=== PATIENT | female | born 1950 | race Caucasian/White ===

== ENCOUNTER 2019-07-31 05:46 | Day surgery (SDC) | payer MEDICARE ==
[2019-07-28 12:22] LABS: BASOPHILS % (AUTO) 0.5 % (0.0-5.0); EOSINOPHILS % (AUTO) 1.5 % (0.0-8.0); HEMATOCRIT 39.1 % (36-48); LYMPHOCYTES % (AUTO) 28.2 % (21.0-51.0); MEAN CORPUSCULAR HEMOGLOBIN 28.3 pg (27.0-33.0); MEAN CORPUSCULAR VOLUME 88.5 fL (79-99); MONOCYTES % (AUTO) 8.2 % (3.0-13.0); NEUTROPHILS % (AUTO) 61.2 % (40.0-77.0); PLATELET COUNT (AUTO) 235 K/uL (130-400); RED BLOOD CELL COUNT(AUTO) 4.42 MIL/uL (4.00-5.50); RED CELL DISTRIBUTION WIDTH 14.5 % (11.0-15.5); WHITE BLOOD COUNT (AUTO) 7.8 K/uL (4.8-10.8)
[2019-07-28 12:27] VITALS: BP 140/72
[2019-07-28 12:30] LABS: CREATININE 0.9 mg/dL (0.5-1.5); POTASSIUM 4.7 mmol/L (3.5-5.1)
[2019-07-28 12:31] LABS: PROTHROMBIN TIME 10.5 SEC (9.6-11.6)
[2019-07-28 12:47] LABS: APPEARANCE,URINE Clear (CLEAR); BILIRUBIN,URINE Negative (NEGATIVE); COLOR,URINE Yellow (YELLOW); GLUCOSE, URINE (UA) Negative (NEGATIVE); KETONES,URINE Negative (NEGATIVE); LEUKOCYTE ESTERASE ,URINE Moderate (NEGATIVE); NITRATE,URINE Negative (NEGATIVE); OCCULT BLOOD,URINE Trace (NEGATIVE); PH,URINE 5.5 (5.0-8.0); PROTEIN,URINE Negative (NEGATIVE); UROBILINOGEN,URINE 0.2 mg/dL (0.2-1.0)
[2019-07-28 13:35] LABS: BACTERIA,URINE Rare /HPF (None Seen); RBC,URINE 0-1 /HPF (0-1); SQUAMOUS EPITHELIAL CELL,UR Few /HPF (0-2)
[~2019-07-31] VITALS: Ht 152.4 cm; Wt 77.1 kg
[2019-07-31] VITALS (9 sets, daily range): BP systolic 100–135; BP diastolic 55–88
[~2019-07-31 05:46] MED LIST: AMLO5TAB9 PO; CITA-107 PO; CLOP75TA32 PO; METO-391 PO; OXCA600T18 PO; ROSU20TA31 PO; TRAZ-187 PO
--- NOTE | 2019-07-31 06:00 | NUR ---
PRE-PROCEDURE RECEIVED FROM HOME TO DAY 14 FOR SCHEDULED RT & LHC ACCOMPANIED BY . AWAKE IN NO ACUTE DISTRESS. DENIES PAIN. CONNECTED TO CONTINUOUS CARDIOPULMONARY MONITORING. SIDE RAILS UP X2, BED IN LOWEST POSITION, AND CALL LIGHT W/IN REACH.
--- NOTE | 2019-07-31 06:20 | NUR ---
UA RESULTS CARLOS CARRIZALES NOTIFIED OF WBC 6-10 AND LEUK ESTRACE ON UA. NO NEW ORDERS RECEIVED.
[2019-07-31] MEDS ORDERED: SODIUM BICARB 50MEQ 50ML VIAL ONE (07:10)
[2019-07-31] MEDS ORDERED: NITROGLYCERIN 2 MG/VIAL VIAL IV ONE (07:10)
[2019-07-31] MEDS ORDERED: IOHEXOL-350 50ML VIAL IV ONE (07:10)
[2019-07-31] MEDS ORDERED: IOHEXOL 350 MG/ML 100ML INFUS..BTL IV ONE (07:10)
[2019-07-31] MEDS ORDERED: MEPERIDINE-PF 25 MG/ML SYG ONE ×2 (07:11→07:49)
[2019-07-31] MEDS ORDERED: SODIUM CHLORIDE 0.9% 1000ML 1,000 ML IV ONE (07:11)
[2019-07-31] MEDS ORDERED: MIDAZOLAM HCL 1 MG/ML 2ML VIAL ONE ×2 (07:11→07:49)
[2019-07-31] MEDS ORDERED: HEPARIN SODIUM 1000UNIT/ML 10ML VIAL ONE (07:11)
[2019-07-31] MEDS ORDERED: LIDOCAINE HCL 2% 20ML ONE (07:11)
--- NOTE | 2019-07-31 07:13 | NUR ---
PROCEDURE TRANSFERRED TO AIRCRAFT PART ASSEMBLER VIA BED BY BIANKA SAUCEDO RN.
[2019-07-31] MEDS ORDERED: ONDANSETRON HCL 4 MG/2 ML VIAL ONE (07:27)
[2019-07-31] MEDS ORDERED: ONDANSETRON HCL 4 MG/2 ML VIAL IVP PRN (08:45)
--- NOTE | 2019-07-31 09:10 | NUR ---
POST-PROCEDURE RECEIVED FROM FUNERAL DIRECTOR AND EMBALMER VIA BED S/P RT AND LHC. AWAKE IN NO ACUTE DISTRESS. DENIES PAIN. RIGHT FEMORAL CATH SITE W/O SIGNS OF BLEEDING; PERCLOSE DRESSING CLEAN, DRY, AND INTACT;SITE SOFT, NON-TENDER. EDUCATED PT TO KEEP RIGHT LEG STRAIGHT AND HEAD FLAT. PT VERBALIZED UNDERSTANDING. CONNECTED TO CONTINUOUS CARDIOPULMONARY MONITORING. SIDE RAILS UP X2, BED IN LOWEST POSITION, AND CALL LIGHT W/IN REACH.
--- NOTE | 2019-07-31 09:45 | NUR ---
CONSULT PARUL CARRANZA WITH DR. SURESH IN TO SEE PATIENT. DISCUSSED PLAN OF CARE WITH PT INCLUDING PLAN TO MAKE F/U APPT TO SCHEDULED SURGERY. PT VERBALIZED UNDERSTANDING.
--- NOTE | 2019-07-31 10:10 | NUR ---
DIET ATE 50% OF BREAKFAST.
--- NOTE | 2019-07-31 12:05 | NUR ---
DIET ATE 100% OF LUNCH.
--- NOTE | 2019-07-31 13:00 | NUR ---
ACTIVITY UP TO CHAIR WITH MINIMAL ASSIST X1. CATH SITE W/O SIGNS OF BLEEDING; PERCLOSE DRESSING CLEAN, DRY, AND INTACT; SITE SOFT, NON-TENDER.
--- NOTE | 2019-07-31 13:05 | NUR ---
DISCHARGE DAY PT DISCHARGE INSTRUCTION SHEET, MED REC, AND PT SUMMARY REVIEWED WITH PT AND . EDUCATED IF PUNCTURE SITE STARTS BLEEDING APPLY DIRECT PRESSURE OVER THE AREA OR FOR ANY SIGNS OF BLEEDING AND CALL 911, NO HEAVY LIFTING MORE THAN 5LBS FOR 5 DAYS, NO DRIVING FOR 24 HOURS, AND FOLLOW UP APPTS. BOTH VERBALIZED UNDERSTANDING.
--- NOTE | 2019-07-31 13:10 | NUR ---
DISCHARGE DISCHARGE VIA W/C AWAKE IN ACUTE DISTRESS.
== END 2019-07-31 13:10 ==
LOC: DAH 05:46
PROVIDERS: ATTEND Internal Medicine Cardiovascular Disease
DX: I35.0 Nonrheumatic aortic (valve) stenosis (principal); I34.0 Nonrheumatic mitral (valve) insufficiency; I50.30 Unspecified diastolic (congestive) heart failure; I11.0 Hypertensive heart disease with heart failure; I27.20 Pulmonary hypertension, unspecified; E78.5 Hyperlipidemia, unspecified; Z90.49 Acquired absence of other specified parts of digestive tract; G40.909 Epilepsy, unspecified, not intractable, without status epilepticus; Z90.710 Acquired absence of both cervix and uterus; Z98.890 Other specified postprocedural states; Z79.02 Long term (current) use of antithrombotics/antiplatelets; Z86.73 Personal history of transient ischemic attack (TIA), and cerebral infarction without residual deficits; Z79.899 Other long term (current) drug therapy; Z88.8 Allergy status to other drugs, medicaments and biological substances; Z72.89 Other problems related to lifestyle; Z82.49 Family history of ischemic heart disease and other diseases of the circulatory system
CPT/HCPCS: 36415; 71045; 80048; 81001; 85025; 85610; 85730; 93005; 93460; 93880; A4215; A4216; A4221; A4222; A4223 ×3; A4606; A4663; C1760; C1769 ×2; C1893; C1894; J1644; J2175 ×2; J2250 ×2; J2405; J3490 ×3; J7030; Q9965; Q9967 ×2; 99156; 99157

== ENCOUNTER 2019-08-19 09:00 | Inpatient (IN) | payer MEDICARE ==
[~2019-08-19] VITALS: Ht 154.9 cm; Wt 76.6 kg
[~2019-08-19 09:00] MED LIST changes: -CLOP75TA32 PO
[2019-08-19 11:11] LABS: BASOPHILS % (AUTO) 0.6 % (0.0-5.0); EOSINOPHILS % (AUTO) 1.6 % (0.0-8.0); HEMATOCRIT 37.2 % (36-48); LYMPHOCYTES % (AUTO) 24.1 % (21.0-51.0); MEAN CORPUSCULAR HEMOGLOBIN 28.4 pg (27.0-33.0); MEAN CORPUSCULAR HGB CONC 31.7 g/dL (32.0-36.0); MEAN CORPUSCULAR VOLUME 89.6 fL (79-99); MONOCYTES % (AUTO) 7.3 % (3.0-13.0); NEUTROPHILS % (AUTO) 66.2 % (40.0-77.0); PLATELET COUNT (AUTO) 221 K/uL (130-400); RED BLOOD CELL COUNT(AUTO) 4.15 MIL/uL (4.00-5.50); RED CELL DISTRIBUTION WIDTH 14.6 % (11.0-15.5); WHITE BLOOD COUNT (AUTO) 8.1 K/uL (4.8-10.8)
[2019-08-19 11:15] VITALS: BP 140/83
[2019-08-19 11:22] LABS: INR 0.95 (0.85-1.15); PROTHROMBIN TIME 10.3 SEC (9.6-11.6)
[2019-08-19 11:23] LABS: ALBUMIN 3.8 g/dL (3.5-5.0); BILIRUBIN,TOTAL 0.3 mg/dL (0.2-1.0); CREATININE 0.8 mg/dL (0.5-1.5); POTASSIUM 4.7 mmol/L (3.5-5.1); TOTAL PROTEIN, SERUM 8.2 g/dL (6.0-8.3)
[2019-08-19] MEDS ORDERED: CLOP75TA14 PO (11:40)
[2019-08-19 11:58] LABS: HEMOGLOBIN A1C 5.6 % (4.0-6.0)
[2019-08-24] VITALS (23 sets, daily range): BP systolic 101–156; BP diastolic 48–84
[2019-08-24] MEDS ORDERED: AMINOCAPROIC ACID 15,000 MG in SODIUM CHLORIDE 0.9% 500ML 420 ML IV PRN (08:45)
[2019-08-24] MEDS ORDERED: EPINEPHRINE 10 MG in SODIUM CHLORIDE 0.9% 240 ML IV PRN (08:45)
[2019-08-24] MEDS ORDERED: NOREPINEPHRINE BITARTRATE 8 MG in DEXTROSE 5%-WATER 250 ML IV PRN (08:45)
[2019-08-24] MEDS ORDERED: EPINEPHRINE 1 MG/ML AMPULE ONE (10:07)
[2019-08-24] MEDS ORDERED: AMINOCAPROIC ACID 250 MG/ML 20 ML VIAL IV ONE ×2 (10:07→13:14)
[2019-08-24] MEDS ORDERED: NOREPINEPHRINE BITARTRATE 1 MG/1 ML ML IV ONE (10:07)
[2019-08-24] MEDS ORDERED: PROPOFOL 10 MG/ML 20ML VIAL IV ONE (10:07)
[2019-08-24] MEDS ORDERED: PROTAMINE SULFATE 10 MG/ML 25ML VIAL IV ONE (10:07)
[2019-08-24] MEDS ORDERED: LIDOCAINE PF 2% 5ML ABBOJECT ONE (10:07)
[2019-08-24] MEDS ORDERED: ROCURONIUM 10MG/1ML SYR 10 MG/ML ML ONE (10:07)
[2019-08-24] MEDS ORDERED: ESMOLOL HCL 10 MG/ML 10 ML VIAL ONE (10:07)
[2019-08-24] MEDS ORDERED: MIDAZOLAM HCL 1 MG/ML 2ML VIAL ONE (10:07)
[2019-08-24] MEDS ORDERED: HEPARIN SODIUM 1000UNIT/ML 10ML VIAL ONE (10:07)
[2019-08-24] MEDS ORDERED: ETOMIDATE 2 MG/ML 10 ML VIAL ONE (10:07)
[2019-08-24] MEDS ORDERED: AMIODARONE HCL 50 MG/ML 3 ML VIAL ONE (10:08)
[2019-08-24] MEDS ORDERED: GLYCOPYRROLATE 1 MG/5 ML SYRINGE ONE (10:08)
[2019-08-24] MEDS ORDERED: FENTANYL CITRATE PF 50 MCG/1 ML 5ML AMP IV ONE ×2 (10:11)
[2019-08-24] MEDS: CEFUROXIME SODIUM 1.5 GM VIAL IVP SCH ×2 (10:30→11:35)
[2019-08-24] MEDS ORDERED: SODIUM CHLORIDE 0.9% 1000ML 1,000 ML IV ONE (10:39)
--- NOTE | 2019-08-24 10:51 | NUR ---
POTENTIAL FOR INFECTION: SHAVED BILATERAL GROIN AREA AND BILATERAL ABOVE KNEE PER HOWARD RITTER, FOLLOWED BY WIPING WITH NOEL: 2% CHLORHEXIDINE GLUCONATE CLOTH PATIENTS PRE-OP SKIN PREP.
--- NOTE | 2019-08-24 11:00 | NUR ---
CONSULT: DR. CLARKE NOTIFIED OF PATIENT NOT TAKING METOPROLOL IN AM AND HEART RATE AT 58 APICAL. OK TO HOLD METOPROLOL AND DR. CLARKE WILL TAKE CARE DURING SURGERY.
[2019-08-24] MEDS ORDERED: DELNIDO FORMULA 1 BAG IV ONE (11:07)
[2019-08-24] MEDS ORDERED: CEFAZOLIN SODIUM 1 GM VIAL ONE (11:21)
[2019-08-24] MEDS ORDERED: ROPIVACAINE 0.5% 5MG/ML 30ML IJ ONE (11:22)
[2019-08-24] MEDS ORDERED: ROCURONIUM BROMIDE 10MG/1ML 5ML VL ONE (11:55)
[2019-08-24] MEDS ORDERED: SODIUM CHLORIDE 0.9% 500ML 500 ML IV SCH (12:05)
[2019-08-24 12:11] LABS: ABG HCO3 22.8 mmol/L (21.0-28.0); ABG PCO2 35 mmHg (32-45)
[2019-08-24] MEDS ORDERED: NOREPINEPHRINE 4MG/NS 250ML 250 ML IV PRN (12:15)
[2019-08-24] MEDS ORDERED: TRAMADOL HCL 50 MG TABLET PO PRN (12:15)
[2019-08-24] MEDS ORDERED: DEXTROSE 50%-WATER 50 ML DISP.SYRIN IV PRN (12:15)
[2019-08-24] MEDS ORDERED: EPINEPHRINE 10 MG in DEXTROSE 5%-WATER 250 ML IV PRN (12:15)
[2019-08-24] MEDS ORDERED: SODIUM CHLORIDE 0.9% 250 ML IV PRN (12:15)
[2019-08-24] MEDS ORDERED: POTASSIUM PHOS 15 mMOL+NS250ML 250 ML IV PRN (12:15)
[2019-08-24] MEDS ORDERED: Q-PUMP 1 EACH IRRIG SCH (12:15)
[2019-08-24] MEDS ORDERED: NITROGLYCERIN 50 MG/D5% WATER 250 BOT IV SCH (12:15)
[2019-08-24] MEDS ORDERED: ACETAMINOPHEN 325 MG TAB PO PRN ×2 (12:15)
[2019-08-24] MEDS ORDERED: PROPOFOL 1000 MG/100 ML 100 ML IV PRN (12:15)
[2019-08-24] MEDS ORDERED: SODIUM CHLORIDE 0.9% 1000ML 1,000 ML IV SCH (12:15)
[2019-08-24] MEDS ORDERED: GLUCAGON 1MG KIT 1 MG ML IM PRN (12:15)
[2019-08-24] MEDS ORDERED: ACETAMINOPHEN 650 MG SUPPOSITORY RC PRN (12:15)
[2019-08-24] MEDS ORDERED: MORPHINE SULFATE 4 MG/1ML SYG IV PRN (12:15)
[2019-08-24] MEDS ORDERED: SODIUM CHLORIDE 0.9% 10 ML VIAL IVP PRN (12:15)
[2019-08-24] MEDS ORDERED: ONDANSETRON HCL 4 MG/2 ML VIAL IV PRN (12:15)
[2019-08-24] MEDS ORDERED: AMINOCAPROIC ACID 15,000 MG in SODIUM CHLORIDE 0.9% 250 ML IV SCH (12:15)
[2019-08-24] MEDS ORDERED: MORPHINE SULFATE 2 MG/ML 1ML SYG IV PRN (12:15)
[2019-08-24] MEDS ORDERED: ALBUMIN (HUMAN) 5% 250 ML IV PRN (12:15)
[2019-08-24 12:43] LABS: ABG BASE EXCESS -1.6 mmol/L (-2.0-3.0); ABG HCO3 21.6 mmol/L (21.0-28.0); ABG OXYGEN SATURATION 98.7 % (95.0-99.0); ABG PCO2 30 mmHg (32-45)
[2019-08-24] MEDS ORDERED: PROTAMINE SULFATE 10 MG/ML 5 ML VIAL ONE (12:54)
[2019-08-24] MEDS ORDERED: ROPIVACAINE 0.2% 2MG/ML 100ML VIAL IJ ONE (13:00)
[2019-08-24] MEDS ORDERED: MANNITOL 25% 50ML VIAL IV ONE (13:14)
[2019-08-24] MEDS ORDERED: ALBUMIN (HUMAN) 25% 50 ML IV ONE (13:14)
[2019-08-24] MEDS ORDERED: CALCIUM CHLORIDE 100 MG/ML 10 ML SYG IVP ONE (13:14)
[2019-08-24] MEDS ORDERED: SODIUM BICARB 8.4% 50ML SYRINGE IVP ONE (13:14)
[2019-08-24] MEDS ORDERED: MAGNESIUM SULFATE 1 GM/2 ML VIAL IM ONE (13:14)
[2019-08-24] MEDS ORDERED: HEPARIN SODIUM 1000UNIT/ML 10ML VIAL IV ONE (13:14)
[2019-08-24] MEDS ORDERED: PHENYLEPHRINE HCL 10 MG/ML 1ML VIAL IV ONE (13:14)
[2019-08-24 13:32] LABS: ABG BASE EXCESS -1.3 mmol/L (-2.0-3.0); ABG HCO3 23.7 mmol/L (21.0-28.0); ABG OXYGEN SATURATION 98.8 % (95.0-99.0); ABG PCO2 41 mmHg (32-45)
[2019-08-24 14:13] LABS: ABG BASE EXCESS -4.4 mmol/L (-2.0-3.0); ABG HCO3 21.3 mmol/L (21.0-28.0); ABG OXYGEN SATURATION 96.9 % (95.0-99.0); ABG PCO2 42 mmHg (32-45)
[2019-08-24 14:15] LABS: HEMATOCRIT 31.9 % (36-48); MEAN CORPUSCULAR HEMOGLOBIN 28.8 pg (27.0-33.0); MEAN CORPUSCULAR HGB CONC 32.3 g/dL (32.0-36.0); MEAN CORPUSCULAR VOLUME 89.1 fL (79-99); PLATELET COUNT (AUTO) 184 K/uL (130-400); RED BLOOD CELL COUNT(AUTO) 3.58 MIL/uL (4.00-5.50); RED CELL DISTRIBUTION WIDTH 14.6 % (11.0-15.5); WHITE BLOOD COUNT (AUTO) 25.7 K/uL (4.8-10.8)
[2019-08-24] MEDS: INSULIN REGULAR, HUMAN 3ML 100 UNIT in SODIUM CHLORIDE 0.9% 99 ML IV SCH ×2 (14:22)
[2019-08-24 14:34] LABS: INR 1.08 (0.85-1.15); PARTIAL THROMBOPLASTIN TIME 22.7 SEC (26.3-35.5); PROTHROMBIN TIME 11.6 SEC (9.6-11.6)
[2019-08-24] MEDS: SODIUM BICARB 50MEQ 50ML VIAL IV PRN ×2 (14:34→19:07)
[2019-08-24 14:36] LABS: CREATININE 0.8 mg/dL (0.5-1.5); PHOSPHORUS 3.1 mg/dL (2.5-4.9); POTASSIUM 3.1 mmol/L (3.5-5.1)
[2019-08-24] MEDS: POTASSIUM CHLORIDE 20MEQ/100ML 100 ML IV PRN ×5 (14:36→21:54)
[2019-08-24] MEDS: CALCIUM GLUCONATE 1 GM in SODIUM CHLORIDE 0.9% 50 ML IV PRN ×3 (15:15→16:59)
[2019-08-24 15:49] LABS: ABG BASE EXCESS 0.4 mmol/L (-2.0-3.0); ABG OXYGEN SATURATION 96.9 % (95.0-99.0); ABG PCO2 40 mmHg (32-45)
[2019-08-24 16:46] LABS: ABG BASE EXCESS -0.8 mmol/L (-2.0-3.0); ABG HCO3 24.1 mmol/L (21.0-28.0); ABG OXYGEN SATURATION 97.8 % (95.0-99.0); ABG PCO2 41 mmHg (32-45)
[2019-08-24] MEDS: TRAMADOL HCL 50 MG TABLET PO PRN ×2 (17:32→23:58)
[2019-08-24] MEDS: CEFAZOLIN SODIUM 1 GM VIAL IV SCH (17:49)
[2019-08-24] MEDS: ONDANSETRON HCL 4 MG/2 ML VIAL IV PRN ×2 (18:36→22:25)
[2019-08-24 18:38] LABS: ABG BASE EXCESS -1.3 mmol/L (-2.0-3.0); ABG PCO2 48 mmHg (32-45)
--- NOTE | 2019-08-24 19:45 | NUR ---
ASSESSMENT AWAKE. RESTING IN BED. USES PILLOW TO SPLINT CHEST WITH DBC. IS USE ENCOURAGED PER ORDER. ASSESSMENT COMPLETED SEE FLOW SHEET. Addendum: 08/24/19 at 1946 by JACQUELINE WEIR RN RN Amended: Links added.
[2019-08-24] MEDS: OXCARBAZEPINE 300 MG TAB PO SCH ×2 (21:00→21:40)
[2019-08-24] MEDS: ATORVASTATIN CALCIUM 40 MG TABLET PO SCH (21:00)
[2019-08-24] MEDS: FAMOTIDINE/PF 20 MG/2 ML VIAL IV SCH (21:11)
[2019-08-24 21:36] LABS: MAGNESIUM 2.2 mg/dL (1.80-2.40); POTASSIUM 4.1 mmol/L (3.5-5.1)
[2019-08-24] MEDS ORDERED: CALCIUM GLUCONATE 1 GM/10 ML VIAL IV ONE (21:50)
[2019-08-24] MEDS ORDERED: SODIUM CHLORIDE 0.9% 50 ML IV ONE (21:51)
[2019-08-24] MEDS ORDERED: METOCLOPRAMIDE 10 MG/2 ML VIAL ONE (23:10)
[2019-08-25] VITALS (27 sets, daily range): BP systolic 96–188; BP diastolic 60–83
[2019-08-25] MEDS: CEFAZOLIN SODIUM 1 GM VIAL IV SCH ×2 (01:13→09:24)
[2019-08-25] MEDS: ONDANSETRON HCL 4 MG/2 ML VIAL IV PRN ×2 (01:56→13:52)
[2019-08-25 04:30] LABS: HEMATOCRIT 36.3 % (36-48); MEAN CORPUSCULAR HEMOGLOBIN 28.3 pg (27.0-33.0); MEAN CORPUSCULAR HGB CONC 31.7 g/dL (32.0-36.0); MEAN CORPUSCULAR VOLUME 89.2 fL (79-99); PLATELET COUNT (AUTO) 139 K/uL (130-400); RED BLOOD CELL COUNT(AUTO) 4.07 MIL/uL (4.00-5.50); WHITE BLOOD COUNT (AUTO) 17.6 K/uL (4.8-10.8)
[2019-08-25 04:39] LABS: CREATININE 0.8 mg/dL (0.5-1.5); INR 0.99 (0.85-1.15); MAGNESIUM 1.9 mg/dL (1.80-2.40); PHOSPHORUS 4.1 mg/dL (2.5-4.9); POTASSIUM 4.8 mmol/L (3.5-5.1); PROTHROMBIN TIME 10.7 SEC (9.6-11.6)
[2019-08-25] MEDS: CEFUROXIME SODIUM 1.5 GM VIAL IVP SCH (04:57)
[2019-08-25] MEDS ORDERED: CALCIUM GLUCONATE 1 GM/10 ML VIAL IV ONE (05:15)
[2019-08-25] MEDS ORDERED: SODIUM CHLORIDE 0.9% 50 ML IV ONE (05:16)
[2019-08-25] MEDS: MAGNESIUM 2GM PREMIX 50ML 50 ML IV PRN (05:29)
[2019-08-25] MEDS: METOCLOPRAMIDE 10 MG/2 ML VIAL IVP SCH ×3 (05:36→21:59)
[2019-08-25] MEDS: TRAMADOL HCL 50 MG TABLET PO PRN ×3 (06:52→22:03)
--- NOTE | 2019-08-25 08:28 | NUR ---
ON ARRIVAL TO MY SHIFT PT WAS NAUSEATED/VOMITING....ANXIOUS. NTG IV AT 10MCG INFUSING.. THAT WAS STOPPED. DR THIBODEAUX ROUNDED AND SAW THE PT AND UPDATED ON STATUS..WILL ATTEMPT TO GIVE HER ORAL NORVASC FOR BP CONTROL INSTEAD OF NTG. HOB ELEVATED ,COOL TOWEL APPLIED TO FOREHEAD, ALLOWED TO REST AND NOW FEELS BETTER. ENCOURAGED HER TO LIMIT ORAL FLUIDS UNTIL N/V RESOLVED
[2019-08-25] MEDS: FUROSEMIDE 10 MG/ML 2ML VIAL IV SCH ×2 (09:22→21:00)
[2019-08-25] MEDS: OXCARBAZEPINE 300 MG TAB PO SCH ×2 (09:22→21:01)
[2019-08-25] MEDS: FAMOTIDINE/PF 20 MG/2 ML VIAL IV SCH ×2 (09:22→21:00)
[2019-08-25] MEDS: CITALOPRAM 20 MG TABLET PO SCH (09:23)
[2019-08-25] MEDS: AMLODIPINE BESYLATE 5 MG TAB PO SCH (09:42)
[2019-08-25] MEDS: CALCIUM GLUCONATE 1 GM in SODIUM CHLORIDE 0.9% 50 ML IV PRN (11:03)
[2019-08-25] MEDS: INSULIN REGULAR, HUMAN 3ML 100 UNIT in SODIUM CHLORIDE 0.9% 99 ML IV SCH ×2 (11:06)
--- NOTE | 2019-08-25 14:41 | NUR ---
DR SURESH MADE ROUNDS- EXAMINED PT AND GIVEN STATUS UPDATE . NO NEW ORDERS
--- NOTE | 2019-08-25 16:59 | NUR ---
INITIAL Patient lives with spouse, Luis Manuel Hinton, . Patient is [place] from [place]. No home services or DME. Patient is able to drive and complete ADL's independently. PCP is Dr. Andres Haro. Pharmacy is [facility] in [place]. DCP is home. Patient will not consider other placement but home. Addendum: 08/25/19 at 1701 by ASH SIERRA SS Amended: Links added.
[2019-08-25] MEDS: ATORVASTATIN CALCIUM 40 MG TABLET PO SCH (21:00)
[2019-08-26] VITALS (22 sets, daily range): BP systolic 119–177; BP diastolic 53–86
[2019-08-26] MEDS: METOCLOPRAMIDE 10 MG/2 ML VIAL IVP SCH (02:59)
[2019-08-26 03:40] LABS: HEMATOCRIT 34.4 % (36-48); MEAN CORPUSCULAR HEMOGLOBIN 28.3 pg (27.0-33.0); MEAN CORPUSCULAR HGB CONC 32.3 g/dL (32.0-36.0); MEAN CORPUSCULAR VOLUME 87.8 fL (79-99); PLATELET COUNT (AUTO) 91 K/uL (130-400); RED BLOOD CELL COUNT(AUTO) 3.92 MIL/uL (4.00-5.50); RED CELL DISTRIBUTION WIDTH 14.6 % (11.0-15.5); WHITE BLOOD COUNT (AUTO) 22.4 K/uL (4.8-10.8)
[2019-08-26 03:59] LABS: CREATININE 0.7 mg/dL (0.5-1.5); POTASSIUM 3.9 mmol/L (3.5-5.1)
[2019-08-26] MEDS: POTASSIUM CHLORIDE 20MEQ/100ML 100 ML IV PRN (06:03)
[2019-08-26] MEDS: TRAMADOL HCL 50 MG TABLET PO PRN ×2 (07:22→13:45)
--- NOTE | 2019-08-26 08:35 | NUR ---
PT UP TO CHAIR. HAS TOLERATED MEAL GIVEN . NO MORE N/V. ENCOURAGED I.S. PLAN OF CARE DISCUSSED. CHEST TUBE IS LEAKING SEROSANGUINEOUS FLUID AROUND SITE. MINIMAL CT DRAINAGE TO ATRIUM COLLECTION . NO AIR LEAK
[2019-08-26] MEDS: FAMOTIDINE/PF 20 MG/2 ML VIAL IV SCH ×2 (08:51→21:26)
[2019-08-26] MEDS: OXCARBAZEPINE 300 MG TAB PO SCH ×2 (08:52→21:26)
[2019-08-26] MEDS: CITALOPRAM 20 MG TABLET PO SCH (08:52)
[2019-08-26] MEDS: FUROSEMIDE 20 MG TABLET PO SCH ×2 (08:52→16:55)
[2019-08-26] MEDS: AMLODIPINE BESYLATE 5 MG TAB PO SCH (08:52)
[2019-08-26] MEDS: METOPROLOL TARTRATE 25 MG TAB PO SCH ×2 (08:53→21:26)
--- NOTE | 2019-08-26 11:45 | NUR ---
CHEST TUBE SITE CONTINUES TO DRAIN SEROSANGUINEOUS FLUIDS- DRESSING SATURATED /REMOVED/CHANGED.
--- NOTE | 2019-08-26 19:30 | NUR ---
HAND OFF REPORT GIVEN TO BRODIE TERAN.. DR SURESH MADE BEDSIDE ROUNDS- ORDERS RECEIVED
[2019-08-26] MEDS: ATORVASTATIN CALCIUM 40 MG TABLET PO SCH (21:26)
--- NOTE | 2019-08-26 21:50 | NUR ---
ARTERIAL LINE, CHEST TUBE, CORDIS, Q PUMP DC'D PER MD ORDER. PATIENT TOLERATED WELL.
[2019-08-27] VITALS (28 sets, daily range): BP systolic 95–139; BP diastolic 40–91
[2019-08-27 03:56] LABS: BASOPHILS % (AUTO) 0.3 % (0.0-5.0); EOSINOPHILS % (AUTO) 2.9 % (0.0-8.0); HEMATOCRIT 35.1 % (36-48); LYMPHOCYTES % (AUTO) 6.4 % (21.0-51.0); MEAN CORPUSCULAR HEMOGLOBIN 28.4 pg (27.0-33.0); MEAN CORPUSCULAR HGB CONC 31.9 g/dL (32.0-36.0); MEAN CORPUSCULAR VOLUME 88.9 fL (79-99); MONOCYTES % (AUTO) 7.3 % (3.0-13.0); NEUTROPHILS % (AUTO) 82.4 % (40.0-77.0); PLATELET COUNT (AUTO) 80 K/uL (130-400); RED BLOOD CELL COUNT(AUTO) 3.95 MIL/uL (4.00-5.50); RED CELL DISTRIBUTION WIDTH 14.4 % (11.0-15.5); WHITE BLOOD COUNT (AUTO) 18.7 K/uL (4.8-10.8)
[2019-08-27 04:05] LABS: CREATININE 0.9 mg/dL (0.5-1.5)
--- NOTE | 2019-08-27 08:50 | NUR ---
OUT OF BED TO CHAIR, PT ABLE TO TOLERATE FULL WEIGHT BEARING
[2019-08-27] MEDS: FUROSEMIDE 20 MG TABLET PO SCH ×2 (08:52→17:30)
[2019-08-27] MEDS: OXCARBAZEPINE 300 MG TAB PO SCH ×2 (08:53→21:29)
[2019-08-27] MEDS: AMLODIPINE BESYLATE 5 MG TAB PO SCH (08:53)
[2019-08-27] MEDS: METOPROLOL TARTRATE 25 MG TAB PO SCH ×2 (08:53→21:29)
[2019-08-27] MEDS: CITALOPRAM 20 MG TABLET PO SCH (08:53)
[2019-08-27] MEDS ORDERED: ASPIRIN 81MG TAB.CHEW PO SCH (09:00)
[2019-08-27] MEDS: ENOXAPARIN SODIUM 30 MG/0.3 ML SQ SCH (09:00)
--- NOTE | 2019-08-27 10:06 | NUR ---
VOIDED WITHOUT DIFFICULTY S/P REMOVAL TERRELL
--- NOTE | 2019-08-27 10:21 | NUR ---
OUT OF CHAIR, AMBULATED WITH MINIMAL STANDBY ASSISTANCE, NO SHORTNESS OF BREATH. SOME DIZZINESS ON HER WAY BACK TO CHAIR
--- NOTE | 2019-08-27 10:50 | NUR ---
AMBULATED BY PHYSICAL THERAPY IN HALLWAY, TOLERATED WITHOUT CHEST PAIN
[2019-08-27] MEDS ORDERED: DILTIAZEM HCL 5 MG/ML 10 ML VIAL IV ONE (11:50)
[2019-08-27] MEDS ORDERED: DILTIAZEM HCL 5 MG/ML 10 ML VIAL IV SCH ×2 (12:00)
[2019-08-27] MEDS: DILTIAZEM HCL 125 MG/25 ML 125 MG in SODIUM CHLORIDE 0.9% 100 ML IV SCH ×2 (12:13→21:24)
[2019-08-27] MEDS ORDERED: AMIODARONE HCL 50 MG/ML 3 ML VIAL IV SCH (14:30)
[2019-08-27] MEDS ORDERED: DIGOXIN 250 MCG/ML 2ML AMP IV SCH ×2 (14:30→14:45)
[2019-08-27] MEDS ORDERED: DIGOXIN 250 MCG/ML 2ML AMP ONE (14:36)
[2019-08-27] MEDS ORDERED: AMIODARONE HCL 360 MG in DEXTROSE 5%-WATER 200 ML IV SCH (15:00)
[2019-08-27] MEDS: AMIODARONE HCL 150 MG in DEXTROSE 5%-WATER 100 ML IV SCH (15:25)
[2019-08-27] MEDS: ONDANSETRON HCL 4 MG/2 ML VIAL IV PRN (17:30)
[2019-08-27] MEDS ORDERED: AMIODARONE HCL 450 MG in DEXTROSE 5%-WATER 250 ML IV SCH (21:00)
[2019-08-27] MEDS: ATORVASTATIN CALCIUM 40 MG TABLET PO SCH (21:29)
[2019-08-27 23:29] LABS: MAGNESIUM 1.6 mg/dL (1.80-2.40); POTASSIUM 3.3 mmol/L (3.5-5.1)
[2019-08-27] MEDS: MAGNESIUM 2GM PREMIX 50ML 50 ML IV PRN (23:47)
[2019-08-27] MEDS: POTASSIUM CHLORIDE 20MEQ/100ML 100 ML IV PRN (23:47)
[2019-08-28] VITALS (7 sets, daily range): BP systolic 111–157; BP diastolic 56–91
[2019-08-28] MEDS: MAGNESIUM 2GM PREMIX 50ML 50 ML IV PRN (02:12)
[2019-08-28] MEDS: ONDANSETRON HCL 4 MG/2 ML VIAL IV PRN (04:04)
[2019-08-28 05:25] LABS: BASOPHILS % (AUTO) 0.2 % (0.0-5.0); EOSINOPHILS % (AUTO) 3.5 % (0.0-8.0); HEMATOCRIT 33.2 % (36-48); LYMPHOCYTES % (AUTO) 10.3 % (21.0-51.0); MEAN CORPUSCULAR HEMOGLOBIN 28.6 pg (27.0-33.0); MEAN CORPUSCULAR HGB CONC 32.8 g/dL (32.0-36.0); MEAN CORPUSCULAR VOLUME 87.1 fL (79-99); MONOCYTES % (AUTO) 8.2 % (3.0-13.0); NEUTROPHILS % (AUTO) 77.2 % (40.0-77.0); PLATELET COUNT (AUTO) 81 K/uL (130-400); RED BLOOD CELL COUNT(AUTO) 3.81 MIL/uL (4.00-5.50); RED CELL DISTRIBUTION WIDTH 13.8 % (11.0-15.5); WHITE BLOOD COUNT (AUTO) 16.4 K/uL (4.8-10.8)
[2019-08-28 05:45] LABS: CREATININE 0.7 mg/dL (0.5-1.5); POTASSIUM 3.8 mmol/L (3.5-5.1)
[2019-08-28] MEDS ORDERED: DIGOXIN 250 MCG/ML 2ML AMP IV SCH (08:30)
[2019-08-28] MEDS ORDERED: AMIODARONE HCL 200 MG TABLET PO SCH (09:00)
[2019-08-28] MEDS ORDERED: METOPROLOL TARTRATE 25 MG TAB PO SCH (09:00)
[2019-08-28] MEDS: ENOXAPARIN SODIUM 30 MG/0.3 ML SQ SCH (09:18)
[2019-08-28] MEDS: OXCARBAZEPINE 300 MG TAB PO SCH ×2 (09:19→21:56)
[2019-08-28] MEDS: AMLODIPINE BESYLATE 5 MG TAB PO SCH (09:19)
[2019-08-28] MEDS: FUROSEMIDE 20 MG TABLET PO SCH ×2 (09:19→16:28)
[2019-08-28] MEDS: CITALOPRAM 20 MG TABLET PO SCH (09:19)
[2019-08-28] MEDS: AMIODARONE HCL 200 MG TABLET PO SCH (21:55)
[2019-08-28] MEDS: ATORVASTATIN CALCIUM 40 MG TABLET PO SCH (21:56)
--- NOTE | 2019-08-28 23:30 | NUR ---
CALLED DILLON TERAN FOR DR SURESH NOTIFIED OF PTS HEARTRATE OF AFIB IN THE 130s. GAVE INITIAL PO OF PACERONE. KEPT AMIO DRIP RUNNING VIA IV LINE. DILLON WILL CONTACT DR SURESH AND RETURN AN ANSWER TO ME.
[2019-08-29] VITALS (19 sets, daily range): BP systolic 101–160; BP diastolic 51–97
--- NOTE | 2019-08-29 00:20 | NUR ---
SPOKE TO DILLON, PER DR SURESH TO LEAVE AMIO DRIP RUNNING, DEMETRICE AWARE OF AFIB 130s AND PO AMIO WAS GIVEN, DR SURESH WILL ASSESS PT IN THE MORNING.
--- NOTE | 2019-08-29 07:45 | NUR ---
AM ASSESSMENT PT LAYING IN BED, WATCHING TV. A/O X 3. NO SOB. NO DISTRESS NOTED. O2 NC @ 2L. DENIES CHEST PAIN OR DISCOMFORT. DENIES PALPITATIONS. DENIES INCISIONAL PAIN. TELE: AFIB 120-130s. AMIODARONE GTT INFUSING @ 16.6 ML/HR. ROVING FRAME TENDER TO BE NOTIFIED. DENIES LIGHT HEADEDNESS AND.OR DIZZINESS. EPISODE LOLI DIZZINESS YESTERDAY WHEN GETTING OOB. DENIES N/V AND/OR DIARRHEA. STERNAL PRECAUTIONS REINFORCED. IS 750 ML. INSTRUCTED TO CALL FOR ASSISTANCE. CALL CONCHITA W/IN REACH.
[2019-08-29] MEDS: CITALOPRAM 20 MG TABLET PO SCH (08:22)
[2019-08-29] MEDS: AMLODIPINE BESYLATE 5 MG TAB PO SCH (08:22)
[2019-08-29] MEDS: OXCARBAZEPINE 300 MG TAB PO SCH ×2 (08:23→20:26)
[2019-08-29] MEDS: AMIODARONE HCL 200 MG TABLET PO SCH ×2 (08:24→20:26)
[2019-08-29] MEDS: ENOXAPARIN SODIUM 30 MG/0.3 ML SQ SCH (08:25)
[2019-08-29] MEDS: FUROSEMIDE 20 MG TABLET PO SCH ×2 (08:25→16:40)
--- NOTE | 2019-08-29 08:40 | NUR ---
MD VISIT DR Serina GUADALUPE IN TO SEE PT. PLAN FOR PT TO HAVE CARDIOVERSION REVIEWED BY MD. PT AGREES TO HAVING CARDIOVERSION @ BEDSIDE TODAY INSTEAD OF TOMORROW. MD INFORMED PT RISKS OF HAVING CARDIOVERSION DONE TODAY AFTER RECEIVING LOVENOX THIS AM & HAVING A FULL BFAST. PT REQUESTS TO HAVE CARDIOVERSION DONE TODAY.
[2019-08-29] MEDS ORDERED: AMIODARONE HCL 150 MG in DEXTROSE 5%-WATER 100 ML IV SCH (08:45)
[2019-08-29] MEDS ORDERED: FENTANYL CITRATE PF 50 MCG/1 ML 2ML VIAL IVP SCH (09:30)
[2019-08-29] MEDS ORDERED: MIDAZOLAM HCL 1 MG/ML 2ML VIAL IVP SCH (09:30)
[2019-08-29] MEDS: AMIODARONE HCL 150 MG in DEXTROSE 5%-WATER 100 ML IV SCH (09:37)
--- NOTE | 2019-08-29 10:15 | NUR ---
CARDIOVERSION 1015 DR Serina GUADALUPE IN RM. 1019 PROCEDURE TIME OUT DONE. 1020 1 MG OF VERSED IVP GIVEN. 1022 1 MG OF VERSED IVP GIVEN. 1025 PT SHOCKED W/200 JOULES. HR CONVERTED TO SR 90s. 1028 MD OUT. V/S RECORDED IN VITALS SPREADSHEET. PT TOLERATED PROCEDURE WELL.
[2019-08-29] MEDS ORDERED: CLOPIDOGREL BISULFATE 75 MG TAB PO SCH (10:45)
--- NOTE | 2019-08-29 13:58 | NUR ---
STATUS PT AMBULATING IN HALLWAY W/PHYS THERAPY. INFORMED BY MONITOR PT CONVERTED TO AFIB 150s.
[2019-08-29] MEDS: METOPROLOL TARTRATE 25 MG TAB PO SCH ×2 (14:07→20:26)
--- NOTE | 2019-08-29 14:27 | NUR ---
MD MONALISA CONNER STEELER NOTIFIED & UPDATED ON PT'S STATUS. 1400 PO DOSE OF METOPROLOL GIVEN SCHEDULED. PT AFIB 140-150s NON-SUSTAINED. WILL CONTINUE TO MONITOR PT.
--- NOTE | 2019-08-29 16:29 | NUR ---
MD MONALISA CONNER NO UPDATED ON PT'S STATUS. PT CONTINUES IN AFIB 120-130s. ORDERS RECEIVED & ENTERED. PT UPDATED ON NEW ORDERS & PLAN OF CARE.
[2019-08-29] MEDS ORDERED: AMIODARONE HCL 450 MG in DEXTROSE 5%-WATER 250 ML IV SCH (17:15)
[2019-08-29] MEDS ORDERED: DILTIAZEM HCL 5 MG/ML 5 ML VIAL IVP SCH (17:15)
--- NOTE | 2019-08-29 20:00 | NUR ---
PT STATED FEELING ANXIOUS DUE TO NOT BEING ABLE TO SPEND THE NIGHT. SHE HAS BEEN AFIB 120S. ON AMIODARONE DRIP. ON CARDIZEM AND AMIODARONE PO.
[2019-08-29] MEDS ORDERED: DILTIAZEM HCL 60 MG TABLET ONE (20:21)
[2019-08-29] MEDS: ATORVASTATIN CALCIUM 40 MG TABLET PO SCH (20:26)
[2019-08-29] MEDS: DILTIAZEM HCL 60 MG TABLET PO SCH (20:31)
--- NOTE | 2019-08-30 02:37 | NUR ---
PT CONTINUES AFIB 120-130'S.
[2019-08-30 03:18] VITALS: BP 143/81
[2019-08-30 04:56] LABS: BASOPHILS % (AUTO) 0.4 % (0.0-5.0); EOSINOPHILS % (AUTO) 3.2 % (0.0-8.0); HEMATOCRIT 39.2 % (36-48); LYMPHOCYTES % (AUTO) 14.7 % (21.0-51.0); MEAN CORPUSCULAR HEMOGLOBIN 28.4 pg (27.0-33.0); MEAN CORPUSCULAR HGB CONC 33.4 g/dL (32.0-36.0); MONOCYTES % (AUTO) 9.4 % (3.0-13.0); NEUTROPHILS % (AUTO) 71.4 % (40.0-77.0); PLATELET COUNT (AUTO) 120 K/uL (130-400); RED BLOOD CELL COUNT(AUTO) 4.61 MIL/uL (4.00-5.50); RED CELL DISTRIBUTION WIDTH 13.4 % (11.0-15.5); WHITE BLOOD COUNT (AUTO) 16.1 K/uL (4.8-10.8)
[2019-08-30 05:10] LABS: CREATININE 0.8 mg/dL (0.5-1.5); MAGNESIUM 1.7 mg/dL (1.80-2.40)
[2019-08-30 05:16] LABS: POTASSIUM 2.5 mmol/L (3.5-5.1)
[2019-08-30] MEDS ORDERED: LIDOCAINE HCL-MPF 1% 2ML VIAL ONE ×2 (05:33→11:27)
[2019-08-30] MEDS: POTASSIUM CHLORIDE 20 MEQ ERTAB PO PRN ×3 (05:37→11:23)
[2019-08-30] MEDS: DILTIAZEM HCL 60 MG TABLET PO SCH (05:37)
[2019-08-30] MEDS: POTASSIUM CHLORIDE 20MEQ/100ML 100 ML IV PRN ×2 (05:37→11:28)
[2019-08-30] MEDS: METOPROLOL TARTRATE 25 MG TAB PO SCH (06:04)
[2019-08-30 07:30] VITALS: BP 121/82
[2019-08-30] MEDS: ENOXAPARIN SODIUM 30 MG/0.3 ML SQ SCH (08:52)
[2019-08-30] MEDS: AMIODARONE HCL 200 MG TABLET PO SCH (08:53)
[2019-08-30] MEDS: CITALOPRAM 20 MG TABLET PO SCH (08:54)
[2019-08-30] MEDS ORDERED: DILTIAZEM HCL 60 MG TABLET PO SCH ×2 (09:00→14:00)
[2019-08-30] MEDS ORDERED: METOPROLOL TARTRATE 25 MG TAB PO SCH (09:00)
[2019-08-30] MEDS ORDERED: CLOPIDOGREL BISULFATE 75 MG TAB PO SCH (09:00)
[2019-08-30] MEDS ORDERED: APIX5TAB PO (09:17)
[2019-08-30] MEDS ORDERED: AMIO200T5 PO (09:17)
[2019-08-30] MEDS ORDERED: DILT60TA3 PO (09:17)
[2019-08-30] MEDS ORDERED: METO50TA18 PO (09:17)
[2019-08-30] MEDS: OXCARBAZEPINE 300 MG TAB PO SCH (09:21)
[2019-08-30] MEDS: MAGNESIUM 2GM PREMIX 50ML 50 ML IV PRN (09:31)
[2019-08-30 11:30] VITALS: BP 139/86
[2019-08-30] MEDS: POTASSIUM CHLORIDE 10% ELIXIR 20 MEQ/15 ML UDCUP PO PRN ×2 (11:33→14:05)
--- NOTE | 2019-08-30 11:52 | NUR ---
TELE UPDATE: AFIB 100'S- LOW 110'S.
[2019-08-30 15:30] VITALS: BP 142/82
--- NOTE | 2019-08-30 17:34 | NUR ---
DISCHARGE INSTRUCTIONS/INFORMATION GIVEN TO PATIENT. TEACH BACK METHOD USED TO EDUCATE PATIENT ON DIET, WOUND CARE, NEW MEDS PRESCRIBED, S/S TO MONITOR FOR, WHEN TO CALL MD, AND F/U APPOINTMENTS. TELE PACK REMOVED AND RETURNED. PIV X 2 REMOVED. BOTH PIV TIPS WERE INTACT. SUTURE X 1 REMOVED ASEPTICALLY FROM PREVIOUS CHEST TUBE SITE. ALL BELONGINGS WERE PACKED AND TAKEN HOME. PATIENT WAS SAFELY WHEELED TO PRIVATE VEHICLE BY STEPHANIE STEPHEN.
[2019-08-30] MEDS ORDERED: METOPROLOL TARTRATE 50 MG TAB PO SCH (21:00)
[2019-08-31] MEDS ORDERED: APIXABAN 5 MG TABLET PO SCH (09:00)
== END 2019-08-30 17:20 | disposition home or self-care (01) | DRG 219 ==
LOC: EDSTATUS 09:00 → DAHIP 08-24 08:30 → 2CV 08-24 12:47 → 2CH 08-25 05:42 → 2AH 08-28 09:42
PROVIDERS: ADMIT Thoracic Surgery (Cardiothoracic Vascular Surgery); ATTEND Thoracic Surgery (Cardiothoracic Vascular Surgery)
PROC: 5A2204Z Restoration of Cardiac Rhythm, Single (ICD-10-PCS; 2019-08-24)
PROC: X2RF032 Replacement of Aortic Valve using Zooplastic Tissue, Rapid Deployment Technique, Open Approach, New Technology Group 2 (ICD-10-PCS; principal; 2019-08-24 10:00)
PROC: 5A1221Z Performance of Cardiac Output, Continuous (ICD-10-PCS; 2019-08-24 10:00)
DX: I08.0 Rheumatic disorders of both mitral and aortic valves (principal); I50.33 Acute on chronic diastolic (congestive) heart failure; I48.19 Other persistent atrial fibrillation; I27.20 Pulmonary hypertension, unspecified; D69.59 Other secondary thrombocytopenia; E78.5 Hyperlipidemia, unspecified; I11.0 Hypertensive heart disease with heart failure; E87.70 Fluid overload, unspecified; G40.A09 Absence epileptic syndrome, not intractable, without status epilepticus; Z79.01 Long term (current) use of anticoagulants; Z86.73 Personal history of transient ischemic attack (TIA), and cerebral infarction without residual deficits; Z90.49 Acquired absence of other specified parts of digestive tract
CPT/HCPCS: 36415; 71045; 71046; 80048; 80053; 82330; 82435; 82803; 82947; 82948; 83036; 83605; 83735; 84100; 84132; 84295; 85018; 85025; 85027; 85347; 85610; 85730; 86850; 86900; 86901; 86922; 93005; 93313; 93318; 94002; 94003; 94150; 97039; A4357; A7048; G0378; J0171; J0282; J0610; J0690; J0697; J1160; J1644; J1650; J1815; J1940; J2001; J2150; J2250; J2270; J2370; J2405; J2704; J2720; J2765; J2795; J3010; J3475; J3480; J3490; J7030; J7040; J7060; P9045; P9047

== ENCOUNTER 2019-09-11 11:26 | Emergency (ER) | payer MEDICARE ==
[~2019-09-11 11:26] MED LIST changes: +AMIO200T5 PO; -AMLO5TAB9 PO; +APIX5TAB PO; +DILT60TA3 PO; -METO-391 PO; +METO50TA18 PO
[2019-09-11 12:03] LABS: BASOPHILS % (AUTO) 0.8 % (0.0-5.0); EOSINOPHILS % (AUTO) 1.7 % (0.0-8.0); HEMATOCRIT 36.6 % (36-48); LYMPHOCYTES % (AUTO) 19.4 % (21.0-51.0); MEAN CORPUSCULAR HEMOGLOBIN 28.9 pg (27.0-33.0); MEAN CORPUSCULAR HGB CONC 33.3 g/dL (32.0-36.0); MEAN CORPUSCULAR VOLUME 86.7 fL (79-99); MONOCYTES % (AUTO) 6.5 % (3.0-13.0); NEUTROPHILS % (AUTO) 71.2 % (40.0-77.0); PLATELET COUNT (AUTO) 301 K/uL (130-400); RED BLOOD CELL COUNT(AUTO) 4.22 MIL/uL (4.00-5.50); RED CELL DISTRIBUTION WIDTH 15.4 % (11.0-15.5); WHITE BLOOD COUNT (AUTO) 9.9 K/uL (4.8-10.8)
[2019-09-11] MEDS ORDERED: FENTANYL CITRATE PF 50 MCG/1 ML 2ML VIAL ONE (12:13)
[2019-09-11] MEDS ORDERED: MIDAZOLAM HCL 5 MG/ML 2ML VIAL IV ONE (12:13)
[2019-09-11 12:20] LABS: CREATININE 0.9 mg/dL (0.5-1.5); POTASSIUM 3.8 mmol/L (3.5-5.1)
[2019-09-11 12:26] LABS: ALBUMIN 3.6 g/dL (3.5-5.0); BILIRUBIN,TOTAL 0.3 mg/dL (0.2-1.0); TOTAL PROTEIN, SERUM 7.7 g/dL (6.0-8.3)
[2019-09-11 12:49] LABS: INR 0.94 (0.85-1.15); PARTIAL THROMBOPLASTIN TIME 25.4 SEC (26.3-35.5); PROTHROMBIN TIME 10.2 SEC (9.6-11.6)
[2019-09-11] MEDS ORDERED: ACETAMINOPHEN 325 MG TAB ONE (13:55)
== END 2019-09-11 14:58 | disposition home or self-care (01) ==
LOC: EDH 11:26
DX: I48.91 Unspecified atrial fibrillation (principal); R00.2 Palpitations; I10 Essential (primary) hypertension; Z90.710 Acquired absence of both cervix and uterus; Z95.2 Presence of prosthetic heart valve
CPT/HCPCS: 36415; 71045; 80053; 82550; 84484 ×2; 85025; 85610; 85730; 92960; 93005 ×2; 99291; J2250; J3010

== ENCOUNTER → 2021-07-24 | Outpatient (CLI) | payer MEDICARE ==
[~2021-07-24] MED LIST changes: -AMIO200T5 PO; +AMIO200T68 PO
== END | disposition home or self-care (01) ==
LOC: RAH 07:45
PROVIDERS: ATTEND Internal Medicine Cardiovascular Disease
DX: K55.1 Chronic vascular disorders of intestine (principal); I77.4 Celiac artery compression syndrome
CPT/HCPCS: 76775

== ENCOUNTER → 2021-07-26 | Outpatient (CLI) | payer MEDICARE | END | disposition home or self-care (01) | LOC: SHCH 08:32 | PROVIDERS: ATTEND Internal Medicine Cardiovascular Disease | DX: I65.23 Occlusion and stenosis of bilateral carotid arteries (principal); R55 Syncope and collapse; R09.89 Other specified symptoms and signs involving the circulatory and respiratory systems | CPT/HCPCS: 93880 ==